=== PATIENT | female | born 1950 | race African-American/Black ===

== ENCOUNTER 2020-01-01 20:05 | Inpatient (IN) ==
[2020-01-01] MEDS ORDERED: LACTATED RINGERS 1,000 ML IV STA (20:26)
[2020-01-01] MEDS ORDERED: DIPH/TET/ACEL PERT BOOSTER VACCINE 0.5 ML VIAL IM ONE (20:26)
[2020-01-01 20:37] LABS: Basophils # 0.1 10*3/uL (0.0-0.2); Basophils % 0.2 % (0.0-0.8); Eosinophils % 0.1 % (0.00-10.9); Hematocrit 38.7 VOL% (35.7-47.0); Hemoglobin 12.6 GM/DL (12.0-16.0); Immature Granulocytes % 2.1 %; Immature Granulocytes Absolute 0.42 #; Lymphocytes # 2.4 10*3/uL (1.4-4.0); Lymphocytes % 11.8 % (21.3-54.2); Mean Corpuscular HGB Conc 32.6 GM/DL (32-36); Mean Corpuscular Volume 92.6 FL (87-102); Mean Platelet Volume 9.3 FL (9.6-12.0); Neutrophils % 80.8 % (38.7-73.9); Platelet Count 221 T/CUMM (130-400); Red Blood Count 4.18 MC/CUMM (3.8-5.5); Red Cell Distribution Width 12.9 % (9.3-17.3); White Blood Count 20.1 T/CUMM (4-12)
[2020-01-01 20:45] LABS: PT Patient Result 10.9 SECS (9.6-12.2); Partial Thromboplastin Time 25.2 SECS (20.8-36.0)
[2020-01-01 20:50] LABS: Albumin 3.6 G/DL (3.4-5.0); Bilirubin,Total 0.5 MG/DL (0.2-1.0); Calcium 9.3 MG/DL (8.5-10.1); Osmolality,Calculated 281.5 MOS/KG (273-304); Total Protein 7.6 G/DL (6.4-8.3)
[2020-01-01 20:59] LABS: Lymphocytes 11 % (20-55); Segmented Neutrophils 83 % (50-85); Total Cells Counted 100
[2020-01-01 21:51] LABS: Apearance,Urine CLEAR (Clear); Bacteria,Urine Occasional /HPF (Few); Bilirubin,Urine Negative (Negative); Blood, Urine Small mg/dL (Negative); Glucose,Urine (UA) Negative (Negative); Hyaline Casts,Urine 10 /LPF (0-3); Ketones,Urine Negative (Negative); Mucus,Urine Occasional /LPF (Occasional); Nitrite,Urine Negative (Negative); Protein,Urine Negative; RBC,Urine 1 /HPF (0-4); Urine Color Yellow (Yellow); Urine Specific Gravity 1.035 (1.001-1.035); Urine Urobilinogen < 2.0 EU/DL (0.2-1.0)
[2020-01-01] MEDS ORDERED: ONDANSETRON 4 MG/2 ML VIAL IV PRN (22:00)
[2020-01-01] MEDS: MORPHINE 4 MG/1 ML VIAL IV PRN (22:45)
[2020-01-01] MEDS: DEXTROSE 5% NACL 0.45% 1,000 ML IV SCH (23:45)
[2020-01-02] MEDS: MORPHINE 4 MG/1 ML VIAL IV PRN ×2 (02:51→06:27)
[2020-01-02] MEDS ORDERED: ceFAZolin 2,000 MG in PREMIX 1 EACH IV ONE (06:28)
[2020-01-02 06:33] LABS: Basophils % 0.1 % (0.0-0.8); Hematocrit 28.1 VOL% (35.7-47.0); Hemoglobin 9.4 GM/DL (12.0-16.0); Immature Granulocytes % 0.4 %; Immature Granulocytes Absolute 0.05 #; Lymphocytes % 8.2 % (21.3-54.2); Mean Corpuscular HGB Conc 33.5 GM/DL (32-36); Mean Corpuscular Volume 88.6 FL (87-102); Mean Platelet Volume 9.3 FL (9.6-12.0); Monocytes % 5.5 % (1.7-12.7); Neutrophils % 85.8 % (38.7-73.9); Platelet Count 160 T/CUMM (130-400); Red Blood Count 3.17 MC/CUMM (3.8-5.5); Red Cell Distribution Width 12.8 % (9.3-17.3); White Blood Count 11.7 T/CUMM (4-12)
[2020-01-02 07:09] LABS: Bilirubin,Total 1.3 MG/DL (0.2-1.0); Calcium 8.7 MG/DL (8.5-10.1); Total Protein 6.4 G/DL (6.4-8.3)
[2020-01-02] MEDS: DEXTROSE 5% NACL 0.45% 1,000 ML IV SCH ×2 (07:10→17:51)
[2020-01-02] MEDS: PANTOPRAZOLE 40 MG TABLET PO SCH (08:02)
[2020-01-02] MEDS ORDERED: PNEUMOCOCCAL VACCINE (13 VALENT) 0.5 ML SYRINGE IM ONE (09:00)
[2020-01-02] MEDS ORDERED: INFLUENZA VIRUS VACCINE 0.5 ML SYRINGE IM ONE (09:00)
[2020-01-02] MEDS: POTASSIUM CHLORIDE RIDER 10 MEQ in PREMIX 1 EACH IV PRN ×3 (09:48→11:55)
[2020-01-02] MEDS ORDERED: ROPIVACAINE 0.5% 30 ML VIAL ONE (12:27)
[2020-01-02] MEDS ORDERED: DEXAMETHASONE 4 MG/1 ML VIAL ONE (12:27)
[2020-01-02] MEDS ORDERED: LIDOCAINE 1% 5 ML VIAL ONE (12:29)
[2020-01-02] MEDS ORDERED: MORPHINE 4 MG/1 ML VIAL IV PRN ×2 (14:42)
[2020-01-02] MEDS ORDERED: diphenhydrAMINE CAP 25 MG CAPSULE PO PRN (14:42)
[2020-01-02] MEDS ORDERED: LACTATED RINGERS 1,000 ML IV SCH (15:00)
[2020-01-02] MEDS ORDERED: GENTAMICIN 80 MG/2 ML VIAL ONE (15:49)
[2020-01-02] MEDS ORDERED: BACITRACIN OINT 0.9 GM PACK TOP ONE (17:07)
[2020-01-02] MEDS ORDERED: propofoL 200 MG/20 ML VIAL IV ONE (17:51)
[2020-01-02] MEDS ORDERED: SEVOFLURANE 1 UNIT/15 MINUTE INH ONE (17:51)
[2020-01-02] MEDS ORDERED: PHENYLEPHRINE DRIP 20 MG/250 ML PREMIX IV ONE (17:51)
[2020-01-02] MEDS ORDERED: LIDOCAINE 2% 5 ML VIAL ONE (17:51)
[2020-01-02] MEDS ORDERED: fentaNYL 100 MCG/2 ML VIAL ONE ×2 (17:52)
[2020-01-02] MEDS ORDERED: MIDAZOLAM 2 MG/2 ML VIAL ONE (17:52)
[2020-01-02] MEDS ORDERED: ONDANSETRON 4 MG/2 ML VIAL ONE (17:53)
[2020-01-02] MEDS ORDERED: GLYCOPYRROLATE 0.4 MG/2 ML VIAL ONE (17:53)
[2020-01-02] MEDS ORDERED: ETOMIDATE 40 MG/20 ML VIAL IV ONE (17:53)
[2020-01-02] MEDS ORDERED: PHENYLEPHRINE 1 MG/10 ML SYRINGE IV ONE (17:53)
[2020-01-02] MEDS ORDERED: LACTATED RINGERS 1,000 ML IV ONE (17:54)
[2020-01-02] MEDS ORDERED: NEOSTIGMINE 10 MG/10 ML VIAL ONE (17:54)
[2020-01-02] MEDS ORDERED: ROCURONIUM 100 MG/10 ML VIAL IV ONE (17:54)
[2020-01-02] MEDS ORDERED: ALBUMIN 5% 12.5 GM in PREMIX 1 EACH IV ONE (18:27)
[2020-01-02] MEDS ORDERED: ALBUMIN 5% 12.5 GM/250 ML VIAL IV ONE (18:29)
[2020-01-02] MEDS: ceFAZolin 2,000 MG in PREMIX 1 EACH IV SCH (20:20)
[2020-01-03] MEDS: POTASSIUM CHLORIDE RIDER 10 MEQ in PREMIX 1 EACH IV PRN (01:10)
[2020-01-03] MEDS: ceFAZolin 2,000 MG in PREMIX 1 EACH IV SCH (05:20)
[2020-01-03 05:25] LABS: Basophils % 0.1 % (0.0-0.8); Hematocrit 20.8 VOL% (35.7-47.0); Hemoglobin 6.8 GM/DL (12.0-16.0); Immature Granulocytes % 0.6 %; Immature Granulocytes Absolute 0.06 #; Lymphocytes # 1.2 10*3/uL (1.4-4.0); Lymphocytes % 10.8 % (21.3-54.2); Mean Corpuscular HGB Conc 32.7 GM/DL (32-36); Mean Platelet Volume 9.6 FL (9.6-12.0); Monocytes % 7.1 % (1.7-12.7); Neutrophils % 81.4 % (38.7-73.9); Platelet Count 116 T/CUMM (130-400); Red Blood Count 2.26 MC/CUMM (3.8-5.5); Red Cell Distribution Width 13.3 % (9.3-17.3); White Blood Count 10.8 T/CUMM (4-12)
[2020-01-03 05:43] LABS: Albumin 2.7 G/DL (3.4-5.0); Bilirubin,Total 0.7 MG/DL (0.2-1.0); Calcium 8.4 MG/DL (8.5-10.1); Osmolality,Calculated 280.4 MOS/KG (273-304); Total Protein 5.7 G/DL (6.4-8.3)
[2020-01-03] MEDS ORDERED: FUROSEMIDE 40 MG/4 ML VIAL IV PRN (06:32)
[2020-01-03] MEDS ORDERED: SODIUM CHLORIDE 0.9% 1,000 ML IV PRN (06:32)
[2020-01-03] MEDS: LINACLOTIDE 145 MCG CAPSULE PO SCH (08:58)
[2020-01-03] MEDS: FONDAPARINUX 2.5 MG/0.5 ML SYRINGE SUBCUT SCH (09:00)
[2020-01-03] MEDS: amLODIPine 10 MG TABLET PO SCH ×3 (14:26→14:51)
[2020-01-03] MEDS: PANTOPRAZOLE 40 MG TABLET PO SCH ×2 (14:27→14:50)
[2020-01-03] MEDS: ESCITALOPRAM 10 MG TABLET PO SCH (14:27)
[2020-01-03 17:37] LABS: Hematocrit 24.8 VOL% (35.7-47.0)
[2020-01-03 17:38] LABS: Hemoglobin 8.3 GM/DL (12.0-16.0)
[2020-01-03] MEDS: KETOROLAC 15 MG/1 ML VIAL IV PRN (18:23)
[2020-01-04 05:51] LABS: Basophils % 0.2 % (0.0-0.8); Eosinophils % 0.2 % (0.00-10.9); Hematocrit 23.6 VOL% (35.7-47.0); Hemoglobin 7.9 GM/DL (12.0-16.0); Immature Granulocytes % 0.9 %; Immature Granulocytes Absolute 0.11 #; Lymphocytes # 1.6 10*3/uL (1.4-4.0); Lymphocytes % 13.8 % (21.3-54.2); Mean Corpuscular HGB Conc 33.5 GM/DL (32-36); Mean Corpuscular Volume 88.7 FL (87-102); Mean Platelet Volume 9.5 FL (9.6-12.0); Monocytes % 9.5 % (1.7-12.7); Neutrophils % 75.4 % (38.7-73.9); Platelet Count 81 T/CUMM (130-400); Red Blood Count 2.66 MC/CUMM (3.8-5.5); Red Cell Distribution Width 15.3 % (9.3-17.3); White Blood Count 11.9 T/CUMM (4-12)
[2020-01-04 06:26] LABS: Hypochromasia Slight; Lymphocytes 13 % (20-55); Segmented Neutrophils 77 % (50-85); Total Cells Counted 100
[2020-01-04 06:27] LABS: Microcytosis 1+; Platelet Estimate Decreased
[2020-01-04] MEDS: LINACLOTIDE 145 MCG CAPSULE PO SCH (07:37)
[2020-01-04] MEDS: FONDAPARINUX 2.5 MG/0.5 ML SYRINGE SUBCUT SCH (09:19)
[2020-01-04] MEDS: PANTOPRAZOLE 40 MG TABLET PO SCH (09:20)
[2020-01-04] MEDS: ESCITALOPRAM 10 MG TABLET PO SCH (09:20)
[2020-01-04] MEDS: amLODIPine 10 MG TABLET PO SCH (09:20)
[2020-01-04] MEDS ORDERED: ASPIRIN 325 MG TABLET PO SCH (11:00)
[2020-01-04] MEDS: MAGNESIUM HYDROXIDE SUSP 30 ML UDCUP PO PRN (12:02)
[2020-01-04 15:04] LABS: Hematocrit 23.7 VOL% (35.7-47.0); Hemoglobin 7.9 GM/DL (12.0-16.0)
[2020-01-05 05:35] LABS: Basophils % 0.3 % (0.0-0.8); Eosinophils # 0.1 10*3/uL (0.0-0.87); Eosinophils % 0.5 % (0.00-10.9); Hematocrit 21.9 VOL% (35.7-47.0); Hemoglobin 7.3 GM/DL (12.0-16.0); Immature Granulocytes % 0.7 %; Immature Granulocytes Absolute 0.08 #; Lymphocytes # 1.7 10*3/uL (1.4-4.0); Lymphocytes % 14.3 % (21.3-54.2); Mean Corpuscular HGB Conc 33.3 GM/DL (32-36); Mean Corpuscular Volume 88.3 FL (87-102); Mean Platelet Volume 10.3 FL (9.6-12.0); Monocytes % 8.7 % (1.7-12.7); NRBC # 0.09 10*3/uL; Neutrophils % 75.5 % (38.7-73.9); Platelet Count 98 T/CUMM (130-400); Red Blood Count 2.48 MC/CUMM (3.8-5.5); Red Cell Distribution Width 14.7 % (9.3-17.3)
[2020-01-05 05:59] LABS: Band Neutrophils 1 % (0-10); Hypochromasia 1+; Lymphocytes 14 % (20-55); Segmented Neutrophils 82 % (50-85); Total Cells Counted 100
[2020-01-05 06:00] LABS: Microcytosis 1+; Platelet Estimate Decreased; Polychromasia Slight
[2020-01-05] MEDS ORDERED: FUROSEMIDE 40 MG/4 ML VIAL IV PRN (07:24)
[2020-01-05] MEDS ORDERED: SODIUM CHLORIDE 0.9% 1,000 ML IV PRN (07:24)
[2020-01-05] MEDS: LINACLOTIDE 145 MCG CAPSULE PO SCH (07:27)
[2020-01-05] MEDS ORDERED: TUBERCULIN SKIN TEST 0.1 ML SYRINGE INTRADERM ONE (08:36)
[2020-01-05] MEDS: PANTOPRAZOLE 40 MG TABLET PO SCH (09:09)
[2020-01-05] MEDS: amLODIPine 10 MG TABLET PO SCH (09:09)
[2020-01-05] MEDS: ESCITALOPRAM 10 MG TABLET PO SCH (09:10)
[2020-01-05 18:20] LABS: Hematocrit 31.1 VOL% (35.7-47.0); Hemoglobin 10.3 GM/DL (12.0-16.0)
[2020-01-05] MEDS: KETOROLAC 15 MG/1 ML VIAL IV PRN (19:10)
[2020-01-06 05:35] LABS: Basophils % 0.2 % (0.0-0.8); Eosinophils # 0.3 10*3/uL (0.0-0.87); Eosinophils % 3.2 % (0.00-10.9); Hematocrit 28.6 VOL% (35.7-47.0); Hemoglobin 9.5 GM/DL (12.0-16.0); Immature Granulocytes % 1.1 %; Immature Granulocytes Absolute 0.11 #; Lymphocytes # 1.9 10*3/uL (1.4-4.0); Lymphocytes % 18.6 % (21.3-54.2); Mean Corpuscular HGB Conc 33.2 GM/DL (32-36); Mean Corpuscular Volume 86.4 FL (87-102); Mean Platelet Volume 10.3 FL (9.6-12.0); Monocytes % 9.3 % (1.7-12.7); NRBC # 0.15 10*3/uL; Neutrophils % 67.6 % (38.7-73.9); Platelet Count 133 T/CUMM (130-400); Red Blood Count 3.31 MC/CUMM (3.8-5.5); Red Cell Distribution Width 15.8 % (9.3-17.3); White Blood Count 10.2 T/CUMM (4-12)
[2020-01-06] MEDS: LINACLOTIDE 145 MCG CAPSULE PO SCH (09:05)
[2020-01-06] MEDS: ESCITALOPRAM 10 MG TABLET PO SCH (09:52)
[2020-01-06] MEDS: FERROUS SULFATE 325 MG TABLET PO SCH ×2 (09:52→20:29)
[2020-01-06] MEDS: amLODIPine 10 MG TABLET PO SCH (09:52)
[2020-01-06] MEDS: PANTOPRAZOLE 40 MG TABLET PO SCH (09:53)
[2020-01-06] MEDS: MAGNESIUM HYDROXIDE SUSP 30 ML UDCUP PO PRN ×2 (10:35→20:29)
[2020-01-07 06:12] LABS: Hematocrit 29.5 VOL% (35.7-47.0); Hemoglobin 9.6 GM/DL (12.0-16.0)
[2020-01-07] MEDS: amLODIPine 10 MG TABLET PO SCH (08:58)
[2020-01-07] MEDS: ESCITALOPRAM 10 MG TABLET PO SCH (08:58)
[2020-01-07] MEDS: FERROUS SULFATE 325 MG TABLET PO SCH ×2 (08:58→23:23)
[2020-01-07] MEDS: PANTOPRAZOLE 40 MG TABLET PO SCH (08:58)
[2020-01-07] MEDS: LINACLOTIDE 145 MCG CAPSULE PO SCH (08:59)
[2020-01-07] MEDS ORDERED: BISACODYL 10 MG SUPP RECTAL ONE (11:21)
[2020-01-07] MEDS ORDERED: ACETAMINOPHEN 325 MG TABLET PO PRN (17:07)
[2020-01-08 05:19] LABS: Amorphous Crystals,Urine Few /HPF (Few); Apearance,Urine CLOUDY (Clear); Bacteria,Urine Occasional /HPF (Few); Bilirubin,Urine Negative (Negative); Blood, Urine Negative (Negative); Glucose,Urine (UA) Negative (Negative); Ketones,Urine Negative (Negative); Mucus,Urine Occasional /LPF (Occasional); Nitrite,Urine Negative (Negative); Protein,Urine Negative; RBC,Urine 2 /HPF (0-4); Squamous Epithelial Cell,Urine Occasional /HPF (0-10); Urine Color Yellow (Yellow); Urine Specific Gravity 1.015 (1.001-1.035); WBC,Urine 2 /HPF (0-6)
[2020-01-08 05:57] LABS: Basophils % 0.3 % (0.0-0.8); Eosinophils # 0.2 10*3/uL (0.0-0.87); Eosinophils % 2.5 % (0.00-10.9); Hematocrit 29.9 VOL% (35.7-47.0); Hemoglobin 9.7 GM/DL (12.0-16.0); Immature Granulocytes % 0.9 %; Immature Granulocytes Absolute 0.09 #; Lymphocytes # 1.4 10*3/uL (1.4-4.0); Lymphocytes % 14.8 % (21.3-54.2); Mean Corpuscular HGB Conc 32.4 GM/DL (32-36); Mean Corpuscular Volume 88.5 FL (87-102); Mean Platelet Volume 9.4 FL (9.6-12.0); Monocytes % 9.2 % (1.7-12.7); NRBC # 0.04 10*3/uL; Neutrophils % 72.3 % (38.7-73.9); Platelet Count 211 T/CUMM (130-400); Red Blood Count 3.38 MC/CUMM (3.8-5.5); Red Cell Distribution Width 15.9 % (9.3-17.3); White Blood Count 9.6 T/CUMM (4-12)
[2020-01-08 06:32] LABS: Osmolality,Calculated 276.7 MOS/KG (273-304)
[2020-01-08] MEDS ORDERED: LINACLOTIDE 145 MCG CAPSULE PO SCH (07:30)
[2020-01-08] MEDS ORDERED: LEVOFLOXACIN 750 MG TABLET PO SCH (09:00)
[2020-01-08] MEDS: FONDAPARINUX 2.5 MG/0.5 ML SYRINGE SUBCUT SCH (09:25)
[2020-01-08] MEDS: amLODIPine 10 MG TABLET PO SCH (09:25)
[2020-01-08] MEDS: ESCITALOPRAM 10 MG TABLET PO SCH (09:26)
[2020-01-08] MEDS: PANTOPRAZOLE 40 MG TABLET PO SCH (09:26)
[2020-01-08] MEDS: FERROUS SULFATE 325 MG TABLET PO SCH (09:26)
[2020-01-08 12:09] VITALS: BP 124/65
== END 2020-01-08 14:00 | disposition swing bed (61) | DRG 493 ==
LOC: EDUNIT# → EDBD → N.ED 20:05 → N.EDINP 20:05 → N.3E 23:01
PROVIDERS: ADMIT Surgery; ATTEND Surgery